=== PATIENT | female | born 1960 | race Caucasian/White ===

== ENCOUNTER 2017-12-31 07:10 | Outpatient (CLI) | payer BC, SELFPAY ==
[2017-12-31 08:34] LABS: ALT 23 U/L (12-78); AST 20 U/L (15-37); Albumin 3.8 g/dL (3.4-5.0); Alkaline Phosphatase 66 U/L (46-116); Anion Gap 7.7 mmol/L (3-11); BUN 16 mg/dL (7-18); Bilirubin, Total 0.6 mg/dL (0.2-1.0); CO2 27.3 mmol/L (21.0-32.0); CREATININE 1.06 mg/dL (0.55-1.02); Calcium 8.9 mg/dL (8.5-10.1); Chloride 105 mmol/L (98-107); Cholesterol 240 mg/dL (50-200); Estimated GFR 53.06 (mL/min/1.73m2); Glucose 91 mg/dL (70-100); HDL Cholesterol 72 mg/dL (40-60); LDL CHOLESTEROL 150 mg/dL (<100); Potassium 4.4 mmol/L (3.5-5.1); Sodium 140 mmol/L (136-145); Triglyceride 92 mg/dL (30-150)
== END 2017-12-31 07:11 ==
PROVIDERS: PCP Nurse Practitioner Family; Visit Provider Nurse Practitioner Family
DX: Z13.1 Encounter for screening for diabetes mellitus (principal); E78.5 Hyperlipidemia, unspecified
CPT/HCPCS: 36415; 80053; 80061; 83721

== ENCOUNTER 2018-01-14 07:13 | Outpatient (CLI) | payer BC, SELFPAY ==
[2018-01-14 08:07] LABS: Hemoglobin A1C 5.3 % (4.5-6.2)
[2018-01-14 08:07] LABS: Bilirubin Negative (Negative); Blood Trace-intact (Negative); Clarity Clear; Glucose Negative (Negative); Ketones Negative (Negative); Leukocyte Esterase Negative (Negative); Nitrite Negative (Negative); Urobilinogen 0.2 EU/dL (Up TO 0.2)
[2018-01-14 08:33] LABS: Bacteria Rare HPF (Negative); C & S Indicated? No; Casts Negative LPF (Negative); Crystals Negative HPF (Negative); Epithelial Cells Rare HPF (Negative); Mucus Negative (Negative); Other Cells Negative (Negative); RBC 0-2 (0-2); WBC 0-2 HPF (0-5)
[2018-01-14 08:53] LABS: COMMENT (LAB VIEW ONLY) 103.17 mg/dL; Microalb ug/mg Crea 2.3 ug/mg Cr
--- NOTE | 2018-01-14 14:15 | DI.US_ITS ---
SYMPTOMS/DIAGNOSIS: RENAL INSUFFICIENCY, ? CHRONIC KIDNEY DISEASE VERSUS OTHER RENAL ULTRASOUND: The right kidney measures 8 cm in length. There is mild parenchymal thinning. Velocity measures 9.6 cm in length. No hydronephrosis, stones or masses are seen involving either kidney. The renal echogenicity appears normal. There are no perinephric collections. The prevoid bladder volume measured 158 cc. The ureteral jets were not visualized. There is no postvoid residual. IMPRESSION: Mildly atrophic right kidney. No evidence of hydronephrosis.
== END 2018-01-14 07:33 ==
PROVIDERS: PCP Nurse Practitioner Family; Visit Provider Nurse Practitioner Family
DX: N28.9 Disorder of kidney and ureter, unspecified (principal); N26.1 Atrophy of kidney (terminal)
CPT/HCPCS: 36415; 76770; 81003; 81015; 82043; 82570; 83036

== ENCOUNTER 2018-10-12 13:42 | Outpatient (CLI) | payer BC, SELFPAY ==
--- NOTE | 2018-10-12 13:40 | DI.RAD_ITS ---
SYMPTOMS/DIAGNOSIS: RIGHT HIP PAIN RIGHT HIP: Two views. There is moderately severe narrowing at the superior aspect of the right hip joint. Subchondral sclerosis is seen. There is mild periarticular spurring at the acetabulum and femoral head. The left hip is well maintained. The bones are normally mineralized and intact. The soft tissues are unremarkable. IMPRESSION: Moderately severe degenerative changes of the right hip.
== END 2018-10-12 14:02 ==
PROVIDERS: PCP Nurse Practitioner Family; Visit Provider Physician Assistant
DX: M25.551 Pain in right hip (principal); M16.11 Unilateral primary osteoarthritis, right hip
CPT/HCPCS: 73502

== ENCOUNTER → 2018-10-13 | Outpatient (CLI) | payer BC, SELFPAY ==
[2018-10-13] MEDS: Omnipaque 300 MG/ML 10 ML BTL IJ (09:00)
--- NOTE | 2018-10-13 09:00 | DI.RAD_ITS ---
SYMPTOM/DIAGNOSIS: RT HIP INJECTION, RT HIP PAIN, DJD FLUOROSCOPY: Fluoroscopy Time: 10.5 sec Under fluoroscopic guidance Dr. Awad positioned a needle in the right hip joint in conjunction with a joint injection. Please see the procedure report for further information.
[2018-10-13] MEDS: Bupivacaine 0.5% Pres-Free 10 ML VIAL 50 ML IJ (09:33)
[2018-10-13] MEDS: methylPREDNISolone ACETATE 80 MG/ML VIAL IM (09:34)
--- NOTE | 2018-10-13 12:06 | W.PROCNOTE ---
Date of service: 10/13/18 Time of Service: 10:06 Procedure Note Date of procedure: 10/13/18 Procedure: Right Hip Injection with Fluoroscopic Guidance Surgeon/Proceduralist/Physician: Ishaan Awad Procedure Diagnosis: Right Hip Osteoarthritis Procedure Indications: Radha has had persistent pain of the RIGHT hip and groin. Noninvasive measures have been tried. To serve as both diagnostic and therapeutic, an injection under fluoroscopy was recommended. I had discussed the risks of the procedure and the patient elected to proceed. Procedure Description: Radha was greeted in the flouroscopy room. The correct side was identified and the consent was reviewed with the patient and signed. The patient was then placed in the supine position on the fluoroscopy table. The RIGHT hip was then prepped with Chloraprep. The anterolateral injection starting point was identiifed by bony landmarks and fluoroscopy. The skin and soft tissue in the tract of the injection was anesthetized with 1% Lidocaine. A spinal needle was then inserted deep into the hip joint at the level of the lateral femoral neck under fluoroscopic guidance. A small amount of Omnipaque solution was injected to confirm intraarticular placement. Once confirmed, the hip was injected with 6cc of 0.5% Bupivicaine and 80mg of Depo-Medrol. A bandaid was placed on the injection site. The patient tolerated the procedure well and noted improvement in pre-injection pain.
== END ==
PROVIDERS: PCP Nurse Practitioner Family; Visit Provider Student in an Organized Health Care Education/Training Program
DX: M16.11 Unilateral primary osteoarthritis, right hip (principal); M25.551 Pain in right hip
CPT/HCPCS: 20610; 77002; J1040

== ENCOUNTER 2018-11-25 11:17 | Outpatient (CLI) | payer BC, SELFPAY ==
--- NOTE | 2018-11-25 10:31 | W.PREOPHP ---
Assessment and Plan (1) Primary osteoarthritis of right hip: Current visit: No Status: Chronic Plan: Patient is a reliable historian and denies any areas of skin breakdown along the left groin and anterior leg. Educated patient that if they develop any lesions, redness or skin breakdown to contact office as skin concerns would be a reason to cancel surgery. Patient gives verbal understanding. Educated patient on surgery covering surgical technique via models, recovery process, benefits and risks including but not limited to risk of infection, blood clot, fracture, numbness/tingling, damage to soft tissue/blood vessels/nerves in detail. After discussion patient gives verbal understanding of risks and elects to proceed with scheduling surgery. Patient had opportunity to have questions answered to their satisfaction. They will contact office if issues arise. Patient will continue to be scheduled for right total hip replacement with Dr. Awad. History of Present Illness Narrative: Ms. Dia is a 58-year-old female who presents to clinic for preop appointment regarding scheduled right total hip replacement with Dr. Awad. Patient reports a several month history of severe right anterior groin discomfort that has prevented her from engaging in desired activity. Patient reports difficulty moving from a sitting to standing position such as with exercise, ascending stairs and going gardening. Due to discomfort patient has been decreasing desired activity to avoid pain. She has been managing discomfort by taking Tylenol 2 pills BID without significant relief. In the past she reports also attempting ice and heat application; states heat helped slightly. Patient has had previously obtained hip x-rays revealed decreased joint space, sclerosis, subchondral cyst, osteophytes of the acetabulum as well as loss of femoral head/neck contour. X-ray findings were significant with moderate degenerative changes of the right hip. Due to patient's symptoms and established arthritis she was offered an intra-articular injection. Since she had the injection she has not experienced groin pain but reports she developed lateral hip pain. Her discomfort has become worse over the past week and will flares intermittently. Her groin pain is elicited when ascending stairs and up from squatting position which also aggravates her lateral discomfort. Denies any falls, injuries, muscle weakness, numbness and tingling. Due to her continued discomfort in her left hip despite conservative treatment Dr. Awad offered surgical intervention and patient was eager to proceed. Pertinent Surgical Information Reports seizure as a child at approximately 3-4 years old. Denies any seizures since that time. Denies seeing a neurologist. Denies past medical history of: Hypertension, stroke, cardiac issues, angina, asthma, COPD, sleep apnea, liver issues, hepatitis, gastrointestinal issues, ulcers, bleeding disorders, anxiety, depression, diabetes, autoimmune disorders, thyroid issues Reports that she did have issues during a right knee ACL surgery when she kept moving her legs despite receiving a spinal anesthetic. Due to the movement she did receive general anesthesia and reports doing well. Patient has had several surgeries since her right ACL surgery and reports has not had any additional issues with anesthesia. Denies prior complications from surgery. Review of Systems Constitutional Denies fever(s), Denies frequent falls and Denies headache(s) Eyes Denies change in vision ENT Denies dizziness, Denies ear discharge, Denies headache(s), Denies epistaxis, Denies nasal discharge and Denies sore throat Cardiovascular Denies chest pain, Denies rapid heart rate, Denies irregular heart rhythm, Denies dyspnea, Denies dyspnea on exertion, Denies orthopnea, Denies paroxysmal nocturnal dyspnea and Denies slow heart rate Respiratory Denies cough, Denies dyspnea, Denies dyspnea on exertion and Denies wheezing Gastrointestinal Denies abdominal pain, Denies melena, Denies hematochezia, Denies constipation, Denies diarrhea, Denies nausea and Denies vomiting Genitourinary Denies hematuria, Denies dysuria and Denies urinary urgency Musculoskeletal Reports as per HPI, Denies numbness and Denies tingling Neurologic Denies dizziness, Denies frequent falls, Denies headache(s), Denies numbness and Denies tingling Psychiatric Denies anxiety and Denies depression Allergic/Immunologic Denies wheezing [facility] Medical History (Updated 11/25/18 @ 10:41 by Emely Pelaez) Allergic rhinitis Allergic rhinitis, unspecified (Chronic 10/26/16) Basal cell carcinoma (BCC) Chronic kidney disease (CKD), stage III (moderate) (Acute) Conductive hearing loss, unspecified (Chronic 08/03/13) DJD (degenerative joint disease) (Chronic 02/12/15) HLD (hyperlipidemia) Migraine (Chronic 06/08/13) Migraines Other and unspecified hyperlipidemia (Chronic 10/28/11) Vitiligo (Chronic 09/14/14) Surgical History (Updated 11/25/18 @ 10:45 by Emely Pelaez) Bunionectomy, right History of section (Chronic) History of total left knee replacement (Acute) History of total right knee replacement (TKR) (Acute) Hysterectomy (~1992) Status post right knee surgery (Acute) Family History (Updated 11/25/18 @ 10:46 by Emely Pelaez) Father Myocardial infarct Mother No problems noted. Social History (Updated 11/25/18 @ 10:47 by Emely Pelaez) Smoking/Tobacco Use Status: Never Alcohol Intake: current Alcohol Intake frequency: a few times a week Alcohol type: beer Drug use: Never current occupation: Speech and language pathologist Additional Social history: Meds Home Medications Medication Instructions Recorded Confirmed Type multivitamin [Multi-Vitamin Daily] 1 ea PO DAILY 10/26/16 11/25/18 History sumatriptan succinate 25 mg PO ONCE PRN #9 tab-cap 10/26/16 11/25/18 History fexofenadine 180 mg PO DAILY #90 tab-cap 11/19/17 11/25/18 Rx Varicella-Zoster Ge/As01b/Pf 50 mcg IM ONCE #1 kit 12/30/17 11/25/18 Clinic [Shingrix Vial Kit] propranolol 20 mg PO BID #180 tab-cap 12/30/17 11/25/18 Rx calcium carbonate-vitamin D3 600 2 tab PO DAILY tab 01/19/18 11/25/18 History mg (1,500 mg)-800 unit tablet krill oil 350 mg PO DAILY 11/25/18 11/25/18 History Allergies Allergy/AdvReac Type Severity Reaction Status Date / Time milk Allergy Other (See Unverified 11/25/18 14:31 Comment) Sulfa (Sulfonamide Allergy rash Unverified 11/25/18 14:31 Antibiotics) Exam Const General: cooperative and no acute distress [facility] Head: normal to inspection, normocephalic and atraumatic Ears: external ears normal General nose exam: external nose normal and no nasal discharge Face and sinus: face symmetric Mouth: oral mucosae normal, lip normal, tongue normal and moist mucous membranes Teeth and gingiva: dentition normal (caps were noted) Throat: posterior oropharynx normal Eyes General: appearance normal, both eyes and all related structures Pupils: PERRL EOM: EOM intact bilaterally Neck Neck: trachea midline Carotids: normal carotid upstroke Lymphatic: no lymphadenopathy noted Resp Effort & Inspection: normal respiratory effort and able to speak in complete sentences Auscultation: clear to auscultation bilaterally, no rales, no rhonchi and no wheezes Cardio Heart Sounds: S1 normal, S2 normal and no murmurs Pulses: radial pulses present bilaterally GI Palpation: soft, no hepatosplenomegaly and nontender Auscultation: normal bowel sounds Skin General skin exam: no rashes or lesions noted Results Labs : 11/25/18 12:10 11/25/18 12:10
[2018-11-25 12:26] LABS: HCT 44.5 % (36.0-46.0); HGB 15.3 g/dL (12.0-15.5); Mean Corp. HGB Concentration 34.4 g/dL (32.0-36.0); Mean Corpuscular Hemoglobin 31.2 pg (27.0-33.0); Mean Corpuscular Volume 90.6 fL (80-95); Mean Platelet Volume 9.4 fL (8.0-11.0); Platelet Count 301 x1000/uL (130-400); RBC 4.91 m/cumm (4.00-5.20); RBC Distribution Width 12.7 % (11.7-14.6); White Blood Cell Count 8.62 k/cumm (4.4-10.8)
[2018-11-25 13:28] LABS: Anion Gap 10.6 mmol/L (3-11); BUN 10 mg/dL (7-18); CO2 27.4 mmol/L (21.0-32.0); CREATININE 0.96 mg/dL (0.55-1.02); Chloride 102 mmol/L (98-107); Estimated GFR 59.28 (mL/min/1.73m2); Glucose 93 mg/dL (70-100); Potassium 4.5 mmol/L (3.5-5.1); Sodium 140 mmol/L (136-145)
== END 2018-11-25 11:37 ==
PROVIDERS: PCP Nurse Practitioner Family; Visit Provider Student in an Organized Health Care Education/Training Program
DX: M16.11 Unilateral primary osteoarthritis, right hip (principal); Z01.812 Encounter for preprocedural laboratory examination
CPT/HCPCS: 36415; 80048; 85027; 86850; 86900; 86901; NC

== ENCOUNTER 2018-12-06 05:58 | Inpatient (IN) | payer BC, SELFPAY ==
[2018-11-25 10:55] VITALS: BP 140/90; PULSE 60; RESP 16; TEMP 36.6; O2SAT 98
[2018-12-06] VITALS (14 sets, daily range): BP systolic 76–117; BP diastolic 36–86; PULSE 48–80; RESP 11–18; TEMP 36.2–36.4; O2SAT 78–100
[2018-12-06] MEDS: Celecoxib 200 MG CAP 400 MG PO (06:31)
[2018-12-06] MEDS: Acetaminophen 500 MG TAB 1000 MG PO ×2 (06:32→12:47)
[2018-12-06] MEDS: oxyCODONE-CR 10 MG TABCR PO (06:32)
--- NOTE | 2018-12-06 07:09 | DI.RAD_ITS ---
SYMPTOM/DIAGNOSIS: OA RT HIP RIGHT HIP IN OR: Fluoroscopy Time: 32.8sec, 4.22mgy Fluoroscopy was provided in the OR for Dr. Awad. Hard copy images show placement of a right hip prosthesis. Please see procedure note for details.
[2018-12-06] MEDS: Normal Saline 1,000 ML 80 ML IV ×2 (07:22→10:13)
[2018-12-06] MEDS: ceFAZolin 2 GM/50 ML BAG IVPB (07:49)
[2018-12-06] MEDS: Ketorolac 30 MG/ML VIAL (09:09)
[2018-12-06] MEDS: Normal Saline 20 ML VIAL (09:09)
[2018-12-06] MEDS: Bupivacaine 0.25% Pres-Free 30 ML VIAL (09:09)
--- NOTE | 2018-12-06 10:05 | DI.RAD_ITS ---
SYMPTOM/DIAGNOSIS: S/P RT ANSLEY PORTABLE AP PELVIS: The patient is status post placement of a right hip prosthesis. The components appear well aligned.
[2018-12-06] MEDS: ePHEDrine 50 MG/ML VIAL 10 MG IVP (10:40)
--- NOTE | 2018-12-06 14:35 | NUR.NOTE ---
New admit from PACU around 1130 s/p right total hip. A&O x4 and denies pain, dewey draining c/y/u, freq vitals set up.
[2018-12-06] MEDS: oxyCODONE 5 MG TAB PO (14:51)
--- NOTE | 2018-12-06 16:32 | W.PM.DS.N ---
Date of service: 12/06/18 Time of Service: 16:32 DS: Diagnosis Discharge Diagnosis (1) Primary osteoarthritis of right hip: Status: Chronic Discharge Plan Disposition Patient Disposition: HOME Condition: Good Discharge Details Reason For Visit: RIGHT HIP DJD Admit Date/Time: 12/06/18 05:58 Admit Provider: Ishaan Awad Attending Provider: Ishaan Awad Primary Care Provider: Va Pulido Hospital Course Hospital Course: Patient was admitted to the medical/surgical floor following the procedure. It was tolerated well without any notable medical, surgical, or anesthetic complications. Mobilization began postoperatively. The dewey catheter was removed and voiding spontaneously. Vitals were stable. Physical therapy worked with the patient and was cleared for discharge home. No acute medical issues. Home Meds and New Rx's Prescriptions: New acetaminophen 500 mg tablet 1,000 mg PO Q8H PRN (Reason: pain) Qty: 60 RF: 3 aspirin 81 mg tablet,delayed release (DR/EC) 81 mg PO BID Qty: 60 RF: 0 celecoxib 200 mg capsule 200 mg PO BID PRN (Reason: pain) Qty: 60 RF: 1 pantoprazole 40 mg tablet,delayed release (DR/EC) 40 mg PO DAILY Qty: 30 RF: 0 oxycodone 5 mg tablet 5 mg PO Q4H Qty: 10 RF: 0 Continued multivitamin [Daily Multi-Vitamin] 1 EACH tablet 1 ea PO DAILY RF: 0 sumatriptan succinate 25 MG tablet 25 mg PO ONCE PRNQty: 9 RF: 3 fexofenadine 180 MG tablet 180 mg PO DAILY Qty: 90 RF: 3 propranolol 20 MG tablet 20 mg PO BID Qty: 180 RF: 3 calcium carbonate-vitamin D3 600 mg(1,500mg) -800 unit tablet 2 tab PO DAILY RF: 0 krill oil 500 mg Capsule 350 mg PO DAILY RF: 0 Discontinued Varicella-Zoster Ge/As01b/Pf [Shingrix Vial Kit] 50 MCG INJ 50 mcg IM ONCE Qty: 1 RF: 1 Discharge Instructions Additional Instructions: Dr. Awad?s Total Hip Discharge Instructions Activity: The most important activity is to walk. You should try to take short walks a few times a day. You have no restrictions on movement or positioning, but do not try to force what you do. You will find some stiffness and weakness with hip flexion (lifting your knee). Do not try to strengthen this too early, continue to practice walking and stairs and this will come. - Outpatient physical therapy can be helpful to help return you to a normal gait and improve your flexibility and strength. This can start around 2 weeks. For some patients, it?s not necessary. Usually this is determined at the time of discharge or at the first post-operative visit. - You should wear the ERIKA hose on both legs for 2 weeks. Dressing: Keep the surgical dressing in place for at least one week. After the first week it may be removed and replace with light gauze and tape or nothing. It may get wet after 3 days but avoid soaking the dressing. If it gets wet, just lightly pat dry. It is important to always keep some gauze between skin folds, especially when you are sitting. Spend some time with the wound exposed when you are lying flat as the incision does wrinkle onto itself. Medications: - You should take Tylenol and an anti-inflammatory Celebrex as your primary pain control medications - You have been prescribed a stronger pain medication Oxycodone for breakthrough pain, take as needed as prescribed. - You have also been prescribed a stomach acid reduction agent Pantoprozole to help reduce stomach acid and reflux. - You will be taking Aspirin 81mg twice a day for DVT prevention unless instructed otherwise. - If you have constipation you should take Colace or Miralax (both [id number]). It takes most people 3-4 days to have a bowel movement. Follow-up: 2 weeks Referrals: Ishaan Awad MD [ [facility] STAFF PHYSICIAN] - Activity:: Activity as Tolerated Equipment/Supplies:: Walker Diet:: As Tolerated Discharge Orders Discharge Orders: Discharge Order (Routine); Ordered 12/06/18 Ordered By: Ishaan Awad DS: Data Vitals/I&O Vitals and I&O: Vital Signs Temperature 36.2 C L 12/06/18 16:09 Temperature Source Tympanic 12/06/18 16:09 Pulse 61 12/06/18 16:09 Pulse Rhythm Regular 12/06/18 06:19 Respiratory Rate 16 12/06/18 16:09 Respiratory Effort 12/06/18 16:06 Respiratory Depth Normal 12/06/18 16:06 Respiratory Pattern Normal 12/06/18 16:06 Blood Pressure 117/81 12/06/18 16:09 Pulse Oximetry 96 12/06/18 16:09 Respiratory End-tidal CO2 39 12/06/18 10:54 Oxygen Delivery Method Room Air 12/06/18 16:09 Oxygen Flow Rate 0 12/06/18 16:09 Pain Level 2 12/06/18 15:51 Intake & Output 12/05/18 12/06/18 12/06/18 23:59 11:59 23:59 Intake Total 1923.333 / 3.333 100 / 3.333 Output Total 450 / 450 Balance 1473.333 / 1573.333 100 / 1573.333 Weight 91.9 kg Intake: IV 1523.333 / 1623.333 100 / 1623.333 Oral 400 / 400 Output: Urine 50 / 50 Estimated Blood Loss 400 / 400 Other: Urine Color Yellow Urine Appearance Clear Clear Comment NOT EMPTIED IN PACU Emesis Description None PFSH Medical History Allergic rhinitis Allergic rhinitis, unspecified (Chronic 10/26/16) Basal cell carcinoma (BCC) Chronic kidney disease (CKD), stage III (moderate) (Acute) Conductive hearing loss, unspecified (Chronic 08/03/13) DJD (degenerative joint disease) (Chronic 02/12/15) HLD (hyperlipidemia) Migraine (Chronic 06/08/13) Migraines Other and unspecified hyperlipidemia (Chronic 10/28/11) Vitiligo (Chronic 09/14/14) Surgical History Bunionectomy, right History of section (Chronic) History of total left knee replacement (Acute) History of total right knee replacement (TKR) (Acute) Hysterectomy (~1992) Status post right knee surgery (Acute) Family History Father Myocardial infarct Mother No problems noted. Social History Smoking/Tobacco Use Status: Never Alcohol Intake: current Alcohol Intake frequency: a few times a week Alcohol type: beer Drug use: Never current occupation: Speech and language pathologist Additional Social history:
--- NOTE | 2018-12-06 16:33 | IN_ITS ---
Date of service: 12/06/18 Time of Service: 13:15 PT Notes Inpatient Physical Therapy Evaluation Date: 12/06/2018 Referring Doctor: Ishaan Awad MD PT Orders: PT CONSULT: Status post anterior right ANSLEY. Likely same day home discharge. Precautions: Fall. Standard. Patient Profile/Admitting Diagnosis: Patient is a 58-year-old female with primary unilateral osteoarthritis of right hip and is status post right anterior total hip arthroplasty on postoperative day 0. PMHX: Medical History (Updated 11/25/18 @ 10:41 by Emely Pelaez) Allergic rhinitis Allergic rhinitis, unspecified (Chronic 10/26/16) Basal cell carcinoma (BCC) Chronic kidney disease (CKD), stage III (moderate) (Acute) Conductive hearing loss, unspecified (Chronic 08/03/13) DJD (degenerative joint disease) (Chronic 02/12/15) HLD (hyperlipidemia) Migraine (Chronic 06/08/13) Migraines Other and unspecified hyperlipidemia (Chronic 10/28/11) Vitiligo (Chronic 09/14/14) Surgical History (Updated 11/25/18 @ 10:45 by Emely Pelaez) Bunionectomy, right History of section (Chronic) History of total left knee replacement (Acute) History of total right knee replacement (TKR) (Acute) Hysterectomy (~1992) Status post right knee surgery (Acute) Social History/Home Situation: Patient lives with Alexy in a 2 floor house with 2-3 steps to enter, no rails on either side. She has 12 steps to get to the second floor of the house where their bedroom is. She is independent with all aspects of ADLs prior to admission without the need for an assistive ambulatory device nor adaptive equipment although admittedly she patient stated that for the last 4 months she has been using a front wheeled walker due to significant decline in her mobility related to osteoarthritis. 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 Current Functional Limitations: Need for use of an assistive ambulatory device for all transfer and ambulation task performance to reduce fall risk Equipment Owned/DME: FWW, [facility] Subjective: Patient and are both agreeable to a PT consult. She denies any headache, chest pain, and right hip pain. She she and her are both hopeful to go home today. She is confident about managing steps to the second floor at home as she has rails on both sides. Objective: General Observation: Patient seen resting in bed with cold pack on right hip area. No swelling or ecchymosis seen adjacent to surgical incision. IV in right UE. TEDS to bilateral legs. Mepilex Ag over surgical incision. Anti- thromboembolic pump on bilateral legs. Mental Status: Alert and oriented x4 Pain: 0/10 at rest and with mobility performance Vital Signs: Patient tested negative for orthostatic hypotension ROM: Right Upper Extremity: Shoulder Flexion WFL. Shoulder abduction WFL. Elbow flexion WFL. Wrist flexion WFL. Functional opening and closing of hand WFL. Left Upper Extremity: Shoulder Flexion WFL. Shoulder abduction WFL. Elbow flexion WFL. Wrist flexion WFL. Functional opening and closing of hand WFL. Right Lower Extremity: Hip flexion WFL. Hip abduction WFL. Knee flexion WFL. Ankle dorsiflexion WFL. Ankle plantarflexion WFL. Left Lower Extremity: Hip flexion WFL. Hip abduction WFL. Knee flexion WFL. Ankle dorsiflexion WFL. Ankle plantarflexion WFL. Strength: Right Upper Extremity: Shoulder flexors 5/5. Shoulder abductors 5/5. Elbow flexors 5/5. Elbow extensors 5/5. Core Extruder strong. Left Upper Extremity: Shoulder flexors 5/5. Shoulder abductors 5/5. Elbow flexors 5/5. Elbow extensors 5/5. Core Extruder strong. Right Lower Extremity: Hip flexors 4/5. Hip abductors 4/5. Knee flexors 4/5. Knee extensors 4/5. Ankle dorsiflexors 5/5. Ankle plantarflexors 5/5. Left Lower Extremity: Hip flexors 5/5. Hip abductors 5/5. Knee flexors 5/5. Knee extensors 5/5. Ankle dorsiflexors 5/5. Ankle plantarflexors 5/5. Sensation: Intact as to pain and pressure on bilateral lower extremities. Bed Mobility/Transfers: Rolling independent Supine to sit independent Sit to supine independent Sit to stand supervision Stand to sit supervision Bed to chair supervision Chair to bed supervision Gait: patient was able to tolerate level surface ambulation of 150 feet x 2 using FWW with WBAT with a step-through gait pattern on the right requiring only supervision and IV pole management of this PT, doing wheelchair follow just for safety. Patient was also able to tolerate up-and-down three 4 inch steps and two 6 inch step ups using a single-point cane with supervision assist only using step to gait pattern. Patient did not report any pain on the right hip throughout gait activity. Patient also denied chest pain, headache, shortness of breath. Balance: Static Sitting: Normal Dynamic Sitting: Normal Static Standing: Good Dynamic Standing: Fair Special Tests: Mobility Limitations Standardized Measure [facility] AM-PAC 6 clicks Basic Mobility Inpatient Short Form: Raw Score: 18 CMS Score: 47% deficit Informed Consent/Education: Patient instructed in purpose of PT consult and plan of care. Patient was also instructed on safe techniques with use of front wheeled walker for all level surface ambulation and with the use of a single- point cane for stair negotiation. Assessment: Patient presents with clinical signs and symptoms consistent with current/admitting diagnoses that have resulted to mobility limitations, gait instability, generalized weakness, and impairment of motor control as demonstrated by the following impairment level findings: 1. Decreased strength to R hip/knee major muscle groups 2. Impaired standing balance/tolerance 3. Impaired activity tolerance Impairments are contributing to the following functional limitations: 1. Inability to safely ambulate without assistive device and physical assistance 2. Increase completion time for mobility ADL performance 3. Increased fall risk 4. Inability to negotiate steps alone safely Patient is assessed as a 84316 moderate complexity based on the following: History: 58-year-old cognitively intact female with premorbid independent level with primary osteoarthritis of right hip status post anterior right total hip arthroplasty Examination: Demonstrable impairment in strength, balance, and range of motion with underlying impairments and functional limitations as documented above Presentation:Evolving Decision Makin moderate complexity Goals: Goals X1 week 1. Supine-Sit independent 2. Sit-Supine independent 3. Sit-Stand independent 4. Stand-Sit independent 5. Bed-Chair independent 6. Chair-Bed independent 7. Independent gait on level surface with use of least restrictive device for at least 300 feet without report of pain nor dyspnea 8. Independent stair negotiation while holding onto bilateral rails for at least 10 steps without report of pain nor dyspnea 9. Independent with home exercise program 10. Good static and dynamic standing balance/tolerance Plan of Care/Treatment Plan: 1-2x/day, 7 days/week x 1 week. Plan of care has been reviewed with the [employer] providing the service under Physical Therapy direction. Initiate Physical Therapy intervention for strengthening, bed mobility, transfers, gait, stairs, balance training, use of assistive device. DISCHARGE RECOMMENDATIONS: May benefit from skilled physical therapy services according to orthopedic surgeon's timeline recommendations. Patient will be educated and trained on home exercise program per TKA exercise protocol in preparation for outpatient physical therapy services. TREATMENT CODE/TIME: 9716 2 x 30 minutes, 14939 x 24 minutes beginning at 13:15 p.m. Thank you very much for this referral. Glenna Holden PT, DPT, CLT [facility]
--- NOTE | 2018-12-06 16:40 | W.PM.OP ---
Date of service: 12/06/18 Time of Service: 10:40 Operative Note DATE OF PROCEDURE: 12/06/18 PRE-OP DIAGNOSIS: Right Hip Osteoarthritis POST-OP DIAGNOSIS: same PROCEDURE: Right Anterior Total Hip Arthroplasty SURGEON: Ishaan Awad ACTIVITY THERAPY TEACHER: Emely Pelaez ANESTHESIA: spinal ESTIMATED BLOOD LOSS: 300 PATHOLOGY: none sent COMPLICATIONS: None Patient was transported to: PACU Patient's condition: stable Implants: 1. Depuy [place] Acetabular Component, 52mm 2. Depuy Acetabular Liner, [id number] 3. Depuy Corail Standard Collared Femoral Stem, Size 11 4. Depuy Altrx Ceramic Femoral Head, Size 32+5mm Indications: I have seen Radha in clinic for symptoms of hip arthritis, confirmed with radiographic findings. Radha has exhausted nonoperative methods and was having significant limitations in daily function and desired better function and less pain. I discussed the technical details of a hip replacement. I explained the risks of the procedure to include, but not limited to, bleeding, infection, pain, stiffness, fracture, damage to nerves and vessels, damage to muscles and tendons, loosening, instability, leg length inequality, need for repeat procedure, blood clot and cardiopulmonary demise. Despite these risks, Radha elected to proceed. Findings: There was significant signs of arthritis throughout the hip. Procedure Description: Radha was greeted in the preoperative holding area where the correct side was identified and marked. The consent was reviewed with the patient and signed. The history and physical was updated. All questions were answered. She was taken back to the operating room. A spinal anesthestic was then administered. The patient was placed into the supine position on the operating room table. The patient was then positioned onto the ARCH table. Both feet were wrapped with [place]brill cotton wrap along with Coban. The feet were placed in specialized boots for the ARCH table, well seated within the boot and secured. SCDs were applied. The patient was then slid down onto a peroneal post and the nonoperative leg was secured in a leg awan attached to the table. The operative side was placed into the ARCH table attachment and bed height and positioning was secured. A preoperative AP pelvis was obtained to serve as a reference for determining leg lengths. Prophylactic antibiotics in the form of Cefazolin were administered. 1g of Tranxemic Acid was given intravenously within 30 minutes of incision. The right leg was then prepped with Chloraprep and draped in a standard fashion with a large shower-curtain type drape with Iodine impregnated skin protection. A timeout to confirm correct identity, side and site, procedure, allergies, anesthesia, and medical concerns was performed. An obliquely oriented incision was made starting lateral to the ASIS and running distal over the Tensor Fascia Joseline (TFL) muscle belly toward the fibular head, approximately 10cm. The skin and soft tissue was dissected sharply, through Syed?s fascia, and to the fascia of the TFL. With the fascia and superior border of the IT band identified, the fascia was incised with a new knife just above any perforators from the IT band. The TFL muscle belly was bluntly dissected away from the fascia and moved laterally. The fat between TFL and rectus was identified to ensure the dissection was not within the TFL. Blunt dissection created space between abductors and the capsule and retractor was placed over the lateral femoral neck. The fibers of the rectus femoris tendon were identified and these were freed from the anterior capsule. A second cobra retractor was placed around the medial femoral neck. The TFL was further retracted laterally to show the deep fascia. Careful dissection through this layer identified three main crossing vessels of the lateral femoral circumflex. These were cauterized in multiple locations and then cut without any noticeable bleeding. The TFL was further released bluntly from the deep fascia to expose anterior hip capsule and fat The Bienvenido orthopaedic retractor was then placed beneath the TFL and against sartorius and medial soft tissues to protect and retract the soft tissues. A T-capsulotomy was then performed starting at the superior lateral acetabulum and moving distally to the intertrochanteric ridge. These capsular flaps were tagged with a No. 1 Ethibond and elevated from within. The capsular flaps were released to the shoulder of the lateral neck and to the lesser trochanter to give excellent visualization of the proximal femur. A neck osteotomy was performed using an oscillating saw based on preoperative templates. This cut started in the shoulder and of the lateral neck and exited medially. The saw was at all times directed medially to avoid injury to the greater trochanter. 6cm of traction was applied to the leg and the osteotomy opened. The femoral head was removed with a corkscrew, making sure to protect the TFL on its exit. This was measured on the back table to determing the starting reamer size. Portions of the rectus obscuring visualization were minimally elevated off the superior acetabulum. An anterior retractor was placed over the anterior wall between capsule and labrum. A posterior retractor was placed similarly. This provided excellent visualization. The contents of the cotyloid fossa were removed with electrocautery and the labrum was removed with a knife. There was a notable floor osteophyte. There was significant chondromalacia of the superior acetabulum. Acetabular reaming began with a 47mm reamer. This first reaming was directed anterior to posterior and medial to get down to the true floor. This was inspected and reamed until the true floor was reached. I then reamed sequentially up to a 51mm reamer where good fit was obtained. The larger reamers were oriented based on anatomical reference of the anterior and lateral moraes to ensure proper abduction and anteversion. Positioning and size was confirmed with the fluoroscopy. A 52mm Depuy [place] acetabular component was selected. The acetabulum was reamed around the periphery with the selected acetabular size to prevent a rim fit. The deep tissues were irrigated. The acetabular component was then impacted in a position of about 40-45 degrees of abduction and 15-20 degrees of anteversion, using the patient?s anatomy as the ultimate landmark. Fluoroscopy was used to confirm this. There was excellent well point pumping supervisor of the acetabular component and the inserting handle was removed. The acetabular liner, Depuy [id number] polyethylene liner, was inserted and lined up with the tines of the acetabular component. There was no soft tissue interposition. The liner was then impacted into position and confirmed to be well-seated. A portion of the carlos-articular cocktail was then injected around the acetabulum into the capsule and periosteum. This cocktail consisted of 50cc of 0.25% Bupivicaine and 20cc of Exparel, expanded to a total of 120cc. Traction was released from the femur. The leg was rotated to 120 degrees. Any remaining medial capsule was released until the lesser trochanter was easily palpable. A Kenney retractor was placed medially. The lateral capsule was further released into the shoulder to allow access to the greater trochanter. A Kenney retractor was placed over the greater trochanter which allowed the trochanter to flip in front of the capsule for excellent exposure. The leg was brought down into maximal extension and 20 degrees of adduction while ensuring there was no impingement on the acetabulum. Any remnant capsule within the trochanter was released. Piriformis and obturator externis were identified and protected. There was excellent access to the proximal femur. The lateral neck remnant was removed with a rongeur. A blunt canal probe was used to identify the canal and trajectory for later broaching. A box osteotome initiated the broach course. A small curved rasp and a curved curette were used to work laterally. Broaching then began with a size 8 Corail broach. This was inserted manually around the trochanter and into the canal before mallet blows. The broach was seated to a few millimeters below the cut level based on the neck cut and the preoperative template. Sequential broaching was continued until a tight fit was obtained with good rotational control of the femur. A trial standard neck was inserted along with a +5 trial head. The leg was brought out of extension and adduction and then reduced with traction and internal rotation. The leg was stable anteriorly in a position of 30 degrees of extension and 90 degrees of external rotation. Fluoroscopy was used to ensure there was no fracture and the stem was seated well. Leg lengths were checked with an AP pelvis and pelvic reference points. Once content with the desired offset and leg lengths, the leg was brought back into extension, external rotation and adduction. The periosteum and surrounding tissue was injected with remaining portion of the carlos-articular cocktail. The proximal femur was irrigated as well as the deep tissues. The Depuy Corail standard collared stem, size 11, was then manually inserted into the proximal femur making sure to control rotation. It was then malleted into position with light blows, giving breaks to allow bone expansion and decrease risk of fracture. The selected Depuy Altrx Ceramic Head, size 32+5mm, was then placed onto the clean and dry trunnion and secured with impaction onto the tapered fit. The leg was brought back out of extension and adduction and reduced with traction and internal rotation. Stability was confirmed with no shuck at 90 degrees of external rotation and 30 degrees of extension. No impingement through range of motion arc. Final x-ray images were obtained with fluoroscopy to confirm adequate positioning and no intraoperative fracture. The deep tissues were thoroughly irrigated with a pulse lavage. The second dose of TXA 1g was administered intravenously.The capsule was then reapproximated with the previously placed Ethibond sutures. The TFL fascia was finally closed with a No. 2 Stratafix, barbed suture. Deep tissues were then reapproximated with 0 Vicryl and a running 2-0 Vicryl. The skin was closed with a running 4-0 Monocryl in a subcuticular fashion. This was reinforced with skin glue. A Mepilex silver dressing was applied. At the end of the case, all counts were correct. Radha was transferred to the hospital bed without difficulty and suffering no apparent complication. She has a good prognosis. Physical therapy will start today and without restrictions, weight-bearing as tolerated. Aspirin 81mg BID will be used for DVT prophylaxis.
--- NOTE | 2018-12-08 12:58 | INDS_ITS ---
Date of service: 12/08/18 Time of Service: 12:58 PT Notes Inpatient Physical Therapy Discharge Summary Dates: 12/08/2018 Dates of Service: 12/06/2018 only Referring Doctor: Ishaan Awad MD PT Orders: PT CONSULT: Status post anterior right ANSLEY. Likely same day home discharge. Precautions: Fall. Standard. Patient Profile/Admitting Diagnosis: Patient is a 58-year-old female with primary unilateral osteoarthritis of right hip and is status post right anterior total hip arthroplasty on postoperative day 0. PMHX: Medical History (Updated 11/25/18 @ 10:41 by Emely Pelaez) Allergic rhinitis Allergic rhinitis, unspecified (Chronic 10/26/16) Basal cell carcinoma (BCC) Chronic kidney disease (CKD), stage III (moderate) (Acute) Conductive hearing loss, unspecified (Chronic 08/03/13) DJD (degenerative joint disease) (Chronic 02/12/15) HLD (hyperlipidemia) Migraine (Chronic 06/08/13) Migraines Other and unspecified hyperlipidemia (Chronic 10/28/11) Vitiligo (Chronic 09/14/14) Surgical History (Updated 11/25/18 @ 10:45 by Emely Pelaez) Bunionectomy, right History of section (Chronic) History of total left knee replacement (Acute) History of total right knee replacement (TKR) (Acute) Hysterectomy (~1992) Status post right knee surgery (Acute) Social History/Home Situation: Patient lives with Alexy in a 2 floor house with 2-3 steps to enter, no rails on either side. She has 12 steps to get to the second floor of the house where their bedroom is. She is independent with all aspects of ADLs prior to admission without the need for an assistive ambulatory device nor adaptive equipment although admittedly she patient stated that for the last 4 months she has been using a front wheeled walker due to significant decline in her mobility related to osteoarthritis. 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 Current Functional Limitations: Need for use of an assistive ambulatory device for all transfer and ambulation task performance to reduce fall risk Equipment Owned/DME: FWW, SPC Subjective: Patient and are both agreeable to a PT consult. She denies any headache, chest pain, and right hip pain. She she and her are both hopeful to go home today. She is confident about managing steps to the second floor at home as she has rails on both sides. Objective: General Observation: Patient seen resting in bed with cold pack on right hip area. No swelling or ecchymosis seen adjacent to surgical incision. IV in right UE. TEDS to bilateral legs. Mepilex Ag over surgical incision. Anti- thromboembolic pump on bilateral legs. Mental Status: Alert and oriented x4 Pain: 0/10 at rest and with mobility performance Vital Signs: Patient tested negative for orthostatic hypotension ROM: Right Upper Extremity: Shoulder Flexion WFL. Shoulder abduction WFL. Elbow flexion WFL. Wrist flexion WFL. Functional opening and closing of hand WFL. Left Upper Extremity: Shoulder Flexion WFL. Shoulder abduction WFL. Elbow flexion WFL. Wrist flexion WFL. Functional opening and closing of hand WFL. Right Lower Extremity: Hip flexion WFL. Hip abduction WFL. Knee flexion WFL. Ankle dorsiflexion WFL. Ankle plantarflexion WFL. Left Lower Extremity: Hip flexion WFL. Hip abduction WFL. Knee flexion WFL. Ankle dorsiflexion WFL. Ankle plantarflexion WFL. Strength: Right Upper Extremity: Shoulder flexors 5/5. Shoulder abductors 5/5. Elbow flexors 5/5. Elbow extensors 5/5. Pest Management Supervisor strong. Left Upper Extremity: Shoulder flexors 5/5. Shoulder abductors 5/5. Elbow flexors 5/5. Elbow extensors 5/5. Pest Management Supervisor strong. Right Lower Extremity: Hip flexors 4/5. Hip abductors 4/5. Knee flexors 4/5. Knee extensors 4/5. Ankle dorsiflexors 5/5. Ankle plantarflexors 5/5. Left Lower Extremity: Hip flexors 5/5. Hip abductors 5/5. Knee flexors 5/5. Knee extensors 5/5. Ankle dorsiflexors 5/5. Ankle plantarflexors 5/5. Sensation: Intact as to pain and pressure on bilateral lower extremities. Bed Mobility/Transfers: Rolling independent Supine to sit independent Sit to supine independent Sit to stand supervision Stand to sit supervision Bed to chair supervision Chair to bed supervision Gait: patient was able to tolerate level surface ambulation of 150 feet x 2 usi ng FWW with WBAT with a step-through gait pattern on the right requiring only supervision and IV pole management of this PT, doing wheelchair follow just for safety. Patient was also able to tolerate up-and-down three 4 inch steps and two 6 inch step ups using a single-point cane with supervision assist only using step to gait pattern. Patient did not report any pain on the right hip throughout gait activity. Patient also denied chest pain, headache, shortness of breath. Balance: Static Sitting: Normal Dynamic Sitting: Normal Static Standing: Good Dynamic Standing: Fair Special Tests: Mobility Limitations Standardized Measure [facility] 6 clicks Basic Mobility Inpatient Short Form: Raw Score: 18 CMS Score: 47% deficit Assessment: Patient presents with clinical signs and symptoms consistent with current/admitting diagnoses that have resulted to mobility limitations, gait instability, generalized weakness, and impairment of motor control as demonstrated by the following impairment level findings: 1. Decreased strength to R hip/knee major muscle groups 2. Impaired standing balance/tolerance 3. Impaired activity tolerance Impairments are contributing to the following functional limitations: 1. Inability to safely ambulate without assistive device and physical assistance 2. Increase completion time for mobility ADL performance 3. Increased fall risk 4. Inability to negotiate steps alone safely Patient is assessed as a 09335 moderate complexity based on the following: History: 58-year-old cognitively intact female with premorbid independent level with primary osteoarthritis of right hip status post anterior right total hip arthroplasty Examination: Demonstrable impairment in strength, balance, and range of motion with underlying impairments and functional limitations as documented above Presentation:Evolving Decision Makin moderate complexity Goals: Goals X1 week 1. Supine-Sit independent MET 2. Sit-Supine independent MET 3. Sit-Stand independent MET 4. Stand-Sit independent NOT MET 5. Bed-Chair independent NOT MET 6. Chair-Bed independent NOT MET 7. Independent gait on level surface with use of least restrictive device for at least 300 feet without report of pain nor dyspnea NOT MET 8. Independent stair negotiation while holding onto bilateral rails for at least 10 steps without report of pain nor dyspnea NOT MET 9. Independent with home exercise program MET 10. Good static and dynamic standing balance/tolerance NOT MET DISCHARGE RECOMMENDATIONS: Patient discharged home on day of evaluation. May benefit from skilled physical therapy services according to orthopedic surgeon's timeline recommendations. Patient will be educated and trained on home exercise program per TKA exercise protocol in preparation for outpatient physical therapy services. TREATMENT CODE/TIME: NC. Thank you very much for this referral. Glenna Holden PT, DPT, CLT [facility]
== END 2018-12-06 17:46 | disposition home or self-care (01) | DRG 470 ==
LOC: PDS 06:03 → MS 10:16
PROVIDERS: Admitting Provider Student in an Organized Health Care Education/Training Program; PCP Nurse Practitioner Family; Visit Provider Student in an Organized Health Care Education/Training Program
PROC: 0SR904A Replacement of Right Hip Joint with Ceramic on Polyethylene Synthetic Substitute, Uncemented, Open Approach (ICD-10-PCS; CPT 27130; principal; 2018-12-06 07:30)
DX: M16.11 Unilateral primary osteoarthritis, right hip (principal); M25.551 Pain in right hip; Z96.641 Presence of right artificial hip joint; N18.3 Chronic kidney disease, stage 3 (moderate); Z96.653 Presence of artificial knee joint, bilateral
CPT/HCPCS: 27130; 97162; 97530; NC; 72170; 73501; J0690; J1885; J2250; J2405; J3010

== ENCOUNTER 2018-12-23 09:21 | Outpatient (CLI) | payer BC, SELFPAY ==
--- NOTE | 2018-12-23 09:31 | DI.RAD_ITS ---
SYMPTOM/DIAGNOSIS: S/P RT ANSLEY RIGHT HIP AND PELVIS: Comparison is made with 12/06/18. There are again seen post surgical changes of a right total hip replacement. No evidence of hardware failure is seen. The bones are intact and normally mineralized. The soft tissues are unremarkable. IMPRESSION: Stable right THR.
== END 2018-12-23 09:41 ==
PROVIDERS: PCP Nurse Practitioner Family; Visit Provider Physician Assistant
DX: M16.11 Unilateral primary osteoarthritis, right hip (principal); Z96.641 Presence of right artificial hip joint
CPT/HCPCS: 73502

== ENCOUNTER 2019-01-13 09:02 | Outpatient (CLI) | payer BC, SELFPAY ==
[2019-01-13 10:49] LABS: Anion Gap 8.1 mmol/L (3-11); BUN 7 mg/dL (7-18); CO2 29.9 mmol/L (21.0-32.0); CREATININE 1.06 mg/dL (0.55-1.02); Calcium 9.7 mg/dL (8.5-10.1); Chloride 104 mmol/L (98-107); Estimated GFR 52.88 (mL/min/1.73m2); Glucose 102 mg/dL (70-100); Potassium 4.4 mmol/L (3.5-5.1); Sodium 142 mmol/L (136-145)
== END 2019-01-13 09:22 ==
PROVIDERS: PCP Nurse Practitioner Family; Visit Provider Nurse Practitioner Family
DX: N18.3 Chronic kidney disease, stage 3 (moderate) (principal); Z13.1 Encounter for screening for diabetes mellitus
CPT/HCPCS: 36415; 80048

== ENCOUNTER 2022-06-12 01:44 | Outpatient (CLI) | payer BC, SELFPAY ==
[2022-06-12 08:05] LABS: Hemoglobin A1C 5.3 % (<5.7)
[2022-06-12 08:32] LABS: ALT 20 U/L (14-59); AST 20 U/L (15-37); Albumin 3.7 g/dL (3.4-5.0); Alkaline Phosphatase 74 U/L (46-116); Anion Gap 8.7 mmol/L (3-11); BUN 22 mg/dL (7-18); Bilirubin, Total 0.4 mg/dL (0.2-1.0); CO2 30.3 mmol/L (21.0-32.0); CREATININE 1.1 mg/dL (0.55-1.02); Calcium 9.4 mg/dL (8.5-10.1); Calculated LDL 161 mg/dL (<100); Chloride 104 mmol/L (98-107); Cholesterol 254 mg/dL (<200); Estimated GFR 56.46 (mL/min/1.73m2); Glucose 98 mg/dL (74-106); HDL Cholesterol 80 mg/dL (40-60); Potassium 3.9 mmol/L (3.5-5.1); Sodium 143 mmol/L (136-145); Total Protein 7.4 g/dL (6.4-8.2); Triglyceride 67 mg/dL (<150)
== END 2022-06-12 01:45 | disposition home or self-care (01) ==
LOC: LBO 01:45
PROVIDERS: PCP Nurse Practitioner Family; Visit Provider Nurse Practitioner Family
DX: R73.01 Impaired fasting glucose (principal); N18.31 Chronic kidney disease, stage 3a; E78.5 Hyperlipidemia, unspecified
CPT/HCPCS: 36415; 80053; 80061; 83036

== ENCOUNTER 2022-10-06 15:38 | Outpatient (REF) | payer BC, SELFPAY ==
[2022-10-06 21:03] LABS: Bilirubin Negative (Negative); Blood Trace-intact (Negative); Clarity Cloudy (Clear); Glucose Negative (Negative); Ketones Negative (Negative); Leukocyte Esterase Moderate (Negative); Nitrite Negative (Negative); Specific Gravity 1.015 (1.005-1.025); Urobilinogen 0.2 mg/dL (Up to 0.2)
[2022-10-06 21:20] LABS: Bacteria Many HPF (Negative); C & S Indicated? Yes; Crystals Negative HPF (Negative); Epithelial Cells Negative HPF (Negative); Mucus Trace (Negative); RBC 0-2 HPF (0-2); WBC >50 HPF (0-5)
== END 2022-10-06 15:39 | disposition home or self-care (01) ==
LOC: LBN 15:38
PROVIDERS: PCP Nurse Practitioner Family; Visit Provider Nurse Practitioner Family
DX: R30.0 Dysuria (principal); R39.15 Urgency of urination; N39.0 Urinary tract infection, site not specified
CPT/HCPCS: 87077; 81003; 81015; 87086; 87186

== ENCOUNTER 2022-10-22 18:53 | Outpatient (REF) | payer BC, SELFPAY | END 2022-10-22 18:54 | disposition home or self-care (01) | LOC: LBN 18:53 | PROVIDERS: PCP Nurse Practitioner Family; Visit Provider Nurse Practitioner Family | DX: N39.0 Urinary tract infection, site not specified (principal) | CPT/HCPCS: 87086 ==

== ENCOUNTER 2023-01-12 19:06 | Outpatient (REF) | payer BC, SELFPAY ==
[2023-01-12 19:41] LABS: Abs Immature Grans 0.01 10^3/uL (0.0-0.06); Absolute Basophil Count 0.06 10^3/uL (0.0-0.2); Absolute Eosinophil Count 0.37 10^3/uL (0.0-0.7); Absolute Lymphocyte Count 2.43 10^3/uL (1.2-3.4); Absolute Monocyte Count 0.85 10^3/uL (0.1-0.8); Absolute Neutrophil Count 4.52 10^3/uL (1.2-6.7); Basophils % 0.7; Eosinophils % 4.5; HCT 35.3 % (36.0-46.0); HGB 11.2 g/dL (11.2-15.7); Immature Grans % 0.1; Lymphocytes % 29.5; MCH 26.4 pg (27.0-33.0); MCHC 31.7 % (32.0-36.0); MCV 83 fL (80-95); MPV 10.2 fL (8.0-11.0); Monocytes % 10.3; Neutrophils % 54.9; Platelet Count 401 10^3/uL (130-400); RBC 4.25 10^6/uL (3.93-5.22); RDW 14.8 % (11.7-14.6); WBC 8.24 10^3/uL (4.4-10.8)
[2023-01-12 19:47] LABS: ESR 19 mm/hr (0-30)
[2023-01-12 21:39] LABS: COVID-19 PCR Negative (Negative); Influenza A PCR Negative (Negative); Influenza B PCR Negative (Negative); RSV PCR Negative (Negative)
[2023-01-12 21:48] LABS: Source Nasopharynx
[2023-01-14 11:23] LABS: Lyme Ab w Rflx to Lyme Confirm Positive (Negative)
[2023-01-14 13:17] LABS: Lyme IgG Ab Positive (Negative); Lyme IgM Ab Positive (Negative)
[2023-01-15 16:20] LABS: ANA Interpretation Positive (Negative); ANA Titer Pattern 1:160 Speckled
[2023-01-15 20:24] LABS: Anaplasma phagocytophilum Negative (Negative); B. miyamotoi PCR Negative (Negative); Babesia divergens/MO-1 Negative (Negative); Babesia duncani Negative (Negative); Babesia microti Negative (Negative); Ehrlichia chaffeensis Negative (Negative); Ehrlichia ewingii/canis Negative (Negative); Ehrlichia muris eauclairensis Negative (Negative)
== END 2023-01-12 19:07 | disposition home or self-care (01) ==
LOC: LBN 19:06
PROVIDERS: PCP Nurse Practitioner Family; Visit Provider Nurse Practitioner
DX: R21 Rash and other nonspecific skin eruption (principal); R05.8 Other specified cough; R53.83 Other fatigue; M79.18 Myalgia, other site; N18.30 Chronic kidney disease, stage 3 unspecified; Z20.822 Contact with and (suspected) exposure to COVID-19
CPT/HCPCS: 85652; 86617; 87637; 87798; 85025; 86038; 86618

== ENCOUNTER 2024-04-17 01:17 | Outpatient (CLI) | payer MEDICARE, SELFPAY ==
--- NOTE | 2024-04-17 07:45 | DI.DEXA_ITS ---
Exam(s) XR DEXA BONE DENSITY W/WO KENZIE EXAM: XR DEXA BONE DENSITY W/WO KENZIE CLINICAL HISTORY: screening for osteoporosis in postmenopausal state,Z78.0 TECHNIQUE: COMPARISON: DX KENZIE from 01/10/2009 FINDINGS: Lateral Spine Image: Unremarkable. No compression deformities identified. Left hip: Total T-Score: 0.2. This compares to 1.2 on the prior examination. Total Z-Score: 1.5 T- and Z-scores: Within normal limits. Lumbar Spine: Total T-Score: 2.3. This compares to 2.6 on the prior examination. Total Z-Score: 4.1 T- and Z-scores: Within normal limits. IMPRESSION: No evidence of osteoporosis.
== END 2024-04-17 01:37 ==
LOC: DI 01:17
PROVIDERS: PCP Nurse Practitioner; Visit Provider Nurse Practitioner
DX: Z78.0 Asymptomatic menopausal state (principal); Z13.820 Encounter for screening for osteoporosis
CPT/HCPCS: 77080

== ENCOUNTER 2024-05-19 01:00 | Outpatient (CLI) | payer MEDICARE, SELFPAY ==
[2024-05-19 07:43] LABS: Abs Immature Grans 0.02 10^3/uL (0.0-0.06); Absolute Basophil Count 0.07 10^3/uL (0.0-0.2); Absolute Eosinophil Count 0.29 10^3/uL (0.0-0.7); Absolute Lymphocyte Count 2.24 10^3/uL (1.2-3.4); Absolute Monocyte Count 0.81 10^3/uL (0.1-0.8); Absolute Neutrophil Count 3.54 10^3/uL (1.2-6.7); Eosinophils % 4.2 %; HCT 37.2 % (36.0-46.0); HGB 11.6 g/dL (11.2-15.7); Immature Grans % 0.3 %; Lymphocytes % 32.1 %; MCH 26.4 pg (27.0-33.0); MCHC 31.2 % (32.0-36.0); MCV 85 fL (80-95); MPV 8.8 fL (8.0-11.0); Monocytes % 11.6 %; Neutrophils % 50.8 %; Platelet Count 314 10^3/uL (130-400); RDW 16.4 % (11.7-14.6); RDW-SD 50.7 fL; WBC 6.97 10^3/uL (4.4-10.8)
[2024-05-19 07:59] LABS: Hemoglobin A1C 5.2 % (<5.7)
[2024-05-19 08:04] LABS: ALT 14 U/L (14-59); AST 15 U/L (15-37); Albumin 3.7 g/dL (3.4-5.0); Alkaline Phosphatase 66 U/L (46-116); Anion Gap 8.2 mmol/L (3-11); BUN 21 mg/dL (7-18); Bilirubin, Total 0.45 mg/dL (0.2-1.0); CO2 30.8 mmol/L (21.0-32.0); CREATININE 1.2 mg/dL (0.55-1.02); Calcium 9.5 mg/dL (8.5-10.1); Calculated LDL 164 mg/dL (<100); Chloride 107 mmol/L (98-107); Cholesterol 261 mg/dL (<200); Estimated GFR 50.23 (mL/min/1.73m2); Glucose 93 mg/dL (74-106); HDL Cholesterol 83 mg/dL (40-60); Potassium 4.2 mmol/L (3.5-5.1); Sodium 146 mmol/L (136-145); Total Protein 7.4 g/dL (6.4-8.2); Triglyceride 70 mg/dL (<150)
== END 2024-05-19 01:01 | disposition home or self-care (01) ==
LOC: LBO 01:00
PROVIDERS: PCP Nurse Practitioner; Referring Provider Nurse Practitioner; Visit Provider Nurse Practitioner
DX: R73.01 Impaired fasting glucose (principal); N18.31 Chronic kidney disease, stage 3a; E78.5 Hyperlipidemia, unspecified
CPT/HCPCS: 36415; 80053; 80061; 83036; 85025

== ENCOUNTER → 2024-06-22 08:28 | Outpatient (BNVA) | payer MEDICARE, SELFPAY | PROVIDERS: PCP Nurse Practitioner; Referring Provider Nurse Practitioner; Visit Provider Physical Therapy Assistant | DX: Z12.11 Encounter for screening for malignant neoplasm of colon (principal); N18.30 Chronic kidney disease, stage 3 unspecified ==

== ENCOUNTER 2024-07-03 07:41 | Day surgery (SDC) | payer MEDICARE, SELFPAY ==
--- NOTE | 2024-07-02 08:57 | W.ANESPRE ---
General Info Date of Service Date Performed: 07/03/24 Height: 5 ft 4.5 in Weight: 85.275 kg Body Mass Index (BMI): 31.7 Surgical Procedure: Operation Date: 07/03/24 09:05 Proposed Procedure Side Surgeon bienvenido Bennett MD Meds Allergies and Home Medications Allergies Allergy/AdvReac Type Severity Reaction Status Date / Time milk Allergy Intermediate thick Verified 07/03/24 08:34 mucous Sulfa (Sulfonamide Allergy rash Verified 07/03/24 08:34 Antibiotics) environmental Allergy Unknown unknown Uncoded 07/03/24 08:34 Home Medication ?Medication ?Instructions ?Recorded multivitamin (Daily Multi-Vitamin 1 ea PO DAILY 10/26/16 tablet) calcium 600 mg (as 2 tab PO DAILY 01/19/18 carbonate)-vitamin D3 20 mcg (800 unit) tablet fexofenadine 180 mg tablet 180 mg PO DAILY #90 tab-caps 05/20/22 sumatriptan succinate 50 mg tablet 50 mg PO ONCE PRN migraine #30 12/15/22 tab-caps losartan 25 mg tablet See Rx Instructions .Route 06/20/24 .COMPLEX #45 tabs propranolol 20 mg tablet See Rx Instructions .Route 06/20/24 .COMPLEX #180 tabs omega 7-edb-sdl-fish oil 1,200 mg 1 cap PO DAILY 06/22/24 (144 mg-216 mg) capsule (Fish Oil) Current Visit Medications: Current Medications Generic Name Dose Route Start Last Admin Trade Name Freq PRN Reason Stop Dose Admin Ringer's Solution 1,000 mls @ 80 mls/hr 07/03/24 06:00 IV 07/03/24 23:59 INFUSION ASHLEE IV Miscellaneous Supplies 1 each 07/03/24 06:00 Iv Access IV 07/03/24 23:59 DIRECTED ASHLEE Sodium Chloride 0 ml 07/03/24 06:00 Normal Saline Flush 10 Ml Syr IV 07/03/24 23:59 PRN PRN Sodium Chloride 0 ml 07/03/24 06:00 Normal Saline 10 Ml Vial IJ 07/03/24 23:59 DIRECTED PRN Sterile Water 0 ml 07/03/24 06:00 Water,Injection,Sterile 10 Ml Vial IJ 07/03/24 23:59 DIRECTED PRN PFSH Active Problems Active Problems: Problem Status Onset Code COVID Acute U07.1 IFG (impaired fasting glucose) Chronic ~01/2019 R73.01 Osteoarthritis Chronic 06/08/13 M19.90 Chronic kidney disease (CKD), stage III (moderate) Chronic N18.3 Vitiligo Chronic 09/14/14 L80 Migraine Chronic 06/08/13 G43.909 Other and unspecified hyperlipidemia Chronic 10/28/11 E78.5 Conductive hearing loss, unspecified Chronic 08/03/13 H90.2 Allergic rhinitis, unspecified Chronic 10/26/16 J30.9 Medical History Medical History Seborrheic keratoses, inflamed (~05/2024) 06/02/24 DH Derm Basal cell carcinoma (BCC) 06/02/24 [facility] Derm Surgical History Surgical History Status post right hip replacement (12/06/18) Status post right knee surgery ACL surgery History of section 3 c-sections History of total right knee replacement (TKR) History of total left knee replacement Hysterectomy (~1992) Ovaries remain Bunionectomy, right Tobacco Smoking/Tobacco Use Status: Never Passive smoking exposure: No Alcohol Alcohol Intake: current Alcohol intake frequency: 0-2 drinks per day Alcohol type: beer Substance Use Substance use: Occasionally Substance use type: marijuana Vital Signs and Lab Results Vital Signs Most Recent Vital Signs in EMR: Temp Pulse Resp BP Pulse Ox 36.2 C L 107 H 16 150/95 H 97 07/03/24 07:50 07/03/24 07:50 07/03/24 07:50 07/03/24 07:50 07/03/24 07:50 Lab Results Blood Type / Crossmatch: No Data to Display Complete Blood Count: No Data to Display Complete Metabolic Panel: No Data to Display Liver Function Panel: No Data to Display Coagulation Panel: No Data to Display Cardiac Panel: No Data to Display Arterial Blood Gas: No Data to Display Venous Blood Gas: No Data to Display Pancreas Panel: No Data to Display Thyroid Panel: No Data to Display Infectious Disease: No Data to Display Blood Cultures: No Data to Display Toxicology Panel: No Data to Display Anesthesia Assessment and Plan Anesthesia History Personal History: No History of Anesthesia Complications Family History: No Family History of Anesthesia Complications Exercise Tolerance Exercise Tolerance: Metabolic Equivalents>4 Cardiac & Pulmonary Exam Cardiac Exam: Normal S1/S2 Heart Sounds Pulmonary Exam: Clear Bilateral Breath Sounds Implantable Cardiac Device Does patient have a Pacemaker or an ICD?: No Airway Exam Known Difficult Airway: No Mallampati Class: 3 Mouth Opening: Normal (> 3cm) Thyromental Distance: Greater than 3 cm Neck Range of Motion: Full ROM Neck Circumference: Normal Teeth Condition: Normal Dentition ASA Classification ASA Score: ASA 3 Emergency Case?: No NPO Status NPO Status: NPO Clears >2 hours, Solids >8 hours Anesthesia Plan Resuscitation Status: Full Code Anesthesia Technique: General Anesthesia Airway Planned: Natural Airway Monitors Used: Standard Monitors Preoperative Comments:: 63 yo female for colo. Sig PMHx: HTN (losartan), CKDIII, migraine. occurs cannabis/EtOH. Previous Anes: - ANSLEY, spinal with 2.5 mL 0.5%, prop/dex sedation, natural airway. no issues.
--- NOTE | 2024-07-02 14:42 | W.PM.DSUDISC ---
Date of service: 07/03/24 Discharge Plan Disposition Patient Disposition: Home Condition: Good Discharge Details Reason For Visit: screening colonoscopy Attending Provider: Frank Bennett Primary Care Provider: Malka Bowie Home Meds and New Rx's Prescriptions: Continued omega 5-pmg-jgv-fish oil [Fish Oil] 1,200 (144-216) mg capsule 1 cap PO DAILY sumatriptan succinate 50 mg tablet 50 mg PO ONCE MDD 200 mg PRN (Reason: migraine) Qty: 30 0RF Rx Instructions: A second dose can be taken if no response after 2 hours multivitamin [Daily Multi-Vitamin] 1 EACH tablet 1 ea PO DAILY calcium carbonate-vitamin D3 600 mg(1,500mg) -800 unit tablet 2 tab PO DAILY fexofenadine 180 mg tablet 180 mg PO DAILY Qty: 90 0RF losartan 25 mg tablet See Rx Instructions .ROUTE .COMPLEX Qty: 45 3RF Dose Instruction: TAKE ONE-HALF TABLET BY MOUTH EVERY DAY Rx Instructions: TAKE ONE-HALF TABLET BY MOUTH EVERY DAY propranolol 20 mg tablet See Rx Instructions .ROUTE .COMPLEX Qty: 180 3RF Dose Instruction: TAKE ONE TABLET BY MOUTH TWICE A DAY FOR MIGRAINE PREVENTION AND TREMOR Patient Comments: 07/02/24 Pt report staking AM dose only Rx Instructions: TAKE ONE TABLET BY MOUTH TWICE A DAY FOR MIGRAINE PREVENTION AND TREMOR Discontinued bisacodyl [Dulcolax (bisacodyl)] 5 mg tablet,delayed release (DR/EC) 5 mg PO ONCE Qty: 4 0RF Rx Instructions: Take per colonoscopy instructions provided by ordering providers office polyethylene glycol 3350 17 gram/dose powder 17 g PO ONCE Qty: 238 0RF Rx Instructions: Take per colonoscopy instructions provided by ordering providers office Discharge Instructions Instructions: Colon polyps Additional Instructions: Radha, it was very nice meeting you today, and I hope you feel great for the rest of the day. Your colonoscopy went very smoothly. I did find to remove a single polyp today. This will be sent off for testing. Polyps, a number of different varieties, and we use the information from the analysis to help guide timing of future colonoscopies. Those results usually take about a week or 2 to get back, but once my office has them, we will be in touch. If you need anything else in the meantime, please do not hesitate to ask. 1. If tolerated, consume a soft, low fiber diet for 1-2 days. 2[address] Do not drive, drink alcohol, operate machinery, make critical decisions, or do activities that require coordination or balance for 24 hours. 3. Because air was put into your colon during the procedure, expelling air from your rectum (passing gas or farting) is normal. 4. You may not have a bowel movement for 1-3 days because of the colonoscopy prep. This is normal. 5. Go directly to the emergency room if you notice any of the following: Develop chills (warm to touch), or if you have a thermometer and your temperature is above 101 Difficulty breathing or difficultly swallowing Persistent vomiting Severe abdominal pain, other than gas cramps Severe chest pain Black, tarry stools Any bleeding ? exceeding one tablespoon 6. Call your physician if the site where your intravenous was started becomes red, swollen, painful, and warm to touch. 7. Your physician has reviewed your pre-procedure medications. Please continue to take those medications as previously ordered. You will be given specific information/education regarding any changes to your medications before leaving. Activity:: Activity as Tolerated Diet:: As Tolerated Discharge Orders Discharge Orders: Discharge Order (Routine); Ordered 07/02/24 Ordered By: Frank Bennett DS: Diagnosis Discharge Diagnosis (1) Encounter for screening colonoscopy: Status: Acute Asessment and Plan: Follow-up on polypectomy results
--- NOTE | 2024-07-02 15:23 | COLE_ITS ---
Date of service: 07/03/24 Time of Service: 09:17 Colonoscopy Report Date of procedure: 07/03/24 Pre-op diagnosis general: screening colonoscopy Post-op diagnosis procedure note: other (Colon polyp) Procedure: colonoscopy with polypectomy Surgeon: Frank Bennett Anesthesia Type: General:No Airway Estimated blood loss (mL): 5 Pathology: other (0.5 cm flat polyp at 40 cm) Complications: None Disposition: same day Indications: Radha is a 63 year old woman who needs a screening colonoscopy Prep: Miralax/Dulcolax Procedure Start Time: 08:49 Procedure End Time: 09:00 Retraction Time: 9 Findings: 0.5 cm flat polyp at 40 cm Procedure Description: After the induction of anesthesia, and with the patient in left lateral decubitus position, I began by performing an external anorectal exam.? Perineum and skin were normal, as was the anal verge.?Next, I performed a digital rectal exam.? I did not appreciate any abnormal findings.? Next, I advanced a colonoscope into the rectal vault.? I performed retroflexion.? This appeared nor mal.? Using insufflation, I then advanced the colonoscope beyond the rectal folds and into the sigmoid colon before advancing towards the cecum.? The quality of the prep was excellent.? The scope was noted to be in the cecum by identification of the ileocecal valve and appendiceal orifice.? I then began withdrawing the colonoscope using repeated irrigation as necessary for full evaluation of the colonic mucosa. Around 40 cm from the anal verge I identified a 0.5 cm polyp. ?It appeared flat in character. ?I was able to remove this with a cold forcep polypectomy. ?I examined the site, and there was minimal bleeding. ?Once this was completed, I continued to withdraw the scope and examine the remainder of the colonic mucosa. ?Once the scope was withdrawn to the level of the rectum, great care was taken to examine portions of the rectal folds.? Finally, the scope was withdrawn and the patient was brought to the same-day surgery recovery unit as the anesthetic wore off. ?The findings and instructions were shared with the patient prior to discharge. [place] Bowel Prep [place] Bowel Prep Right Colon: 3 Left Colon: 3 Transverse Colon: 3 Total Score: 9
[2024-07-03 07:50] VITALS: BP 150/95; PULSE 107; RESP 16; TEMP 36.2; O2SAT 97
[2024-07-03 08:23] VITALS: BMI 31.7
[2024-07-03] MEDS: Lactated Ringers 1,000 ML 80 ML IV (08:30)
--- NOTE | 2024-07-03 09:06 | BOWEL_PTH ---
PATIENT: Radha Dia LOC: [facility] U#:[id number] AGE/SX: 63/F ROOM: RE07/03/[address]: Frank Bennett MD : 1960 BED: DIS: 07/03/2024 SPEC #: [id number] RECD: 07/03/24 12:57 STATUS: COLLIN REQ #: [id number] CARLOS: 07/03/24 09:[address]: Frank Bennett DEPT: Surgical Specimen RECD BY: Mercedes Le ENTERED: 07/03/24 12:58 SP TYPE: Bowel OTHR DR: Malka Bowie APRN Tissues: 1 - BIOPSY BOWEL Procedures: GROSS AND MICRO LEVEL 4 Comments: [id number]
[2024-07-03 09:13] VITALS: BP 139/103; PULSE 94; RESP 16; TEMP 36.6; O2SAT 97
--- NOTE | 2024-07-03 09:23 | W.ANESPOSTOP ---
Postoperative Evaluation Date, Time and Location Date Performed: 07/03/24 Time Performed: 09:23 Patient Location: Day Surgery Unit Vital Signs Most Recent Imported Vital Signs: Most Recent Vital Signs Temp Pulse Resp BP Pulse Ox 36.6 C 94 H 16 139/103 H 97 07/03/24 09:13 07/03/24 09:13 07/03/24 09:13 07/03/24 09:13 07/03/24 09:13 Pain Score Most Recent Pain Score: Most Recent Pain Score Pain Level 0 07/03/24 09:13 Assessment Mental Status: Awake (Alert & Oriented to Patient Baseline) Airway and Respiratory Function: Patent airway with normal (patient baseline) respiratory exam Cardiovascular Function: Hemodynamically Stable Hydration Status: Adequately Hydrated Nausea & Vomiting: No Nausea or Vomiting Pain: Pt. Denies Any Pain Peripheral Nerve Block: Patient did not receive a nerve block
[2024-07-03 09:39] VITALS: BP 162/92; PULSE 75; RESP 16; TEMP 36.5; O2SAT 98
== END 2024-07-03 10:01 | disposition home or self-care (01) ==
LOC: SUR 07:42
PROVIDERS: PCP Nurse Practitioner; Visit Provider Surgery
PROC: 0DJD8ZZ Inspection of Lower Intestinal Tract, Via Natural or Artificial Opening Endoscopic (ICD-10-PCS; CPT 45378; principal; 2024-07-03 09:00)
DX: Z12.11 Encounter for screening for malignant neoplasm of colon (principal); R73.01 Impaired fasting glucose; D12.5 Benign neoplasm of sigmoid colon
CPT/HCPCS: 45380; 88305; J2704

== ENCOUNTER 2024-10-25 11:26 | Outpatient (CLI) | payer MEDICARE, SELFPAY ==
--- NOTE | 2024-10-25 11:51 | DI.RAD_ITS ---
Exam(s) XR CHEST 2V PA LATERAL EXAM: XR CHEST 2V PA LATERAL CLINICAL HISTORY: SOB, R06.02, rule out pneumonia TECHNIQUE: 2D digital imaging was performed. Two views. COMPARISON: CR CHEST 2 VIEWS PA,LAT from 02/07/2011 FINDINGS: HEART: Normal size. Aorta: Not dilated. PULMONARY VASCULATURE: Normal. MEDIASTINUM: Unremarkable. LUNGS: Clear. PLEURAL SPACE: No pleural effusion or pneumothorax. BONE:Unremarkable for age. SOFT TISSUES: Unremarkable. IMPRESSION: No acute abnormality. DATA REPOSITORY: RADIATION DOSE DELIVERED:
== END 2024-10-25 11:46 ==
LOC: DI 11:27
PROVIDERS: PCP Nurse Practitioner; Visit Provider Nurse Practitioner Family
DX: R06.02 Shortness of breath (principal)
CPT/HCPCS: 71046

== ENCOUNTER 2024-10-25 12:10 | Outpatient (REF) | payer MEDICARE, SELFPAY ==
[2024-10-25 16:32] LABS: Bilirubin Negative (Negative); Blood Negative (Negative); Clarity Clear (Clear); Glucose Negative (Negative); Ketones Negative (Negative); Leukocyte Esterase Trace (Negative); Nitrite Negative (Negative); Urobilinogen 0.2 mg/dL (Up to 0.2); pH 7.5 (5-8)
[2024-10-25 16:42] LABS: Bacteria Many HPF (Negative); C & S Indicated? C&S Done As Ordered; Crystals Negative HPF (Negative); Epithelial Cells Rare HPF (Negative); Mucus Negative (Negative); RBC 0-2 HPF (0-2); WBC 20-50 HPF (0-5)
== END 2024-10-25 12:11 | disposition home or self-care (01) ==
LOC: LBN 12:10
PROVIDERS: PCP Nurse Practitioner; Visit Provider Nurse Practitioner Family
DX: N18.31 Chronic kidney disease, stage 3a (principal); R82.998 Other abnormal findings in urine
CPT/HCPCS: 87077; 81003; 81015; 87086; 87186

== ENCOUNTER 2024-10-25 12:34 | Outpatient (CLI) | payer MEDICARE, SELFPAY ==
[2024-10-25 12:10] LABS: Abs Immature Grans 0.04 10^3/uL (0.0-0.06); Absolute Basophil Count 0.03 10^3/uL (0.0-0.2); Absolute Eosinophil Count 0.27 10^3/uL (0.0-0.7); Absolute Lymphocyte Count 3.08 10^3/uL (1.2-3.4); Absolute Monocyte Count 0.74 10^3/uL (0.1-0.8); Absolute Neutrophil Count 4.32 10^3/uL (1.2-6.7); Basophils % 0.4 %; Eosinophils % 3.2 %; HGB 13.9 g/dL (11.2-15.7); Immature Grans % 0.5 %; Lymphocytes % 36.3 %; MCH 26.4 pg (27.0-33.0); MCHC 32.3 % (32.0-36.0); MCV 82 fL (80-95); MPV 9.2 fL (8.0-11.0); Monocytes % 8.7 %; Neutrophils % 50.9 %; Platelet Count 365 10^3/uL (130-400); RBC 5.27 10^6/uL (3.93-5.22); RDW 14.6 % (11.7-14.6); RDW-SD 42.5 fL; WBC 8.48 10^3/uL (4.4-10.8)
[2024-10-26 11:22] LABS: Lyme Ab w Rflx to Lyme Confirm Negative (Negative)
[2024-10-27 23:39] LABS: Anaplasma phagocytophilum Negative (Negative); B. miyamotoi PCR Negative (Negative); Babesia divergens/MO-1 Negative (Negative); Babesia duncani Negative (Negative); Babesia microti Negative (Negative); Ehrlichia chaffeensis Negative (Negative); Ehrlichia ewingii/canis Negative (Negative); Ehrlichia muris eauclairensis Negative (Negative)
== END 2024-10-25 12:35 | disposition home or self-care (01) ==
LOC: LBO 12:35
PROVIDERS: PCP Nurse Practitioner; Visit Provider Nurse Practitioner Family
DX: R06.02 Shortness of breath (principal); M79.10 Myalgia, unspecified site
CPT/HCPCS: 36415; 87798; 85025; 86618